=== PATIENT | female | born 2000 | race Hispanic/Latino ===

== ENCOUNTER 2021-08-14 04:57 | Emergency (ER) | payer OTHER ==
[~2021-08-14] VITALS: Ht 154.9 cm; Wt 88.5 kg
[2021-08-14] MEDS ORDERED: AUGMENTIN 875-1 EACH PO (05:12)
[2021-08-14] MEDS ORDERED: IBUPROFEN600 MG PO (05:12)
== END 2021-08-14 05:21 | disposition home or self-care (01) ==
LOC: ER 05:10
DX: H66.91 Otitis media, unspecified, right ear (principal)
CPT/HCPCS: 99283

== ENCOUNTER 2021-08-15 22:33 | Emergency (ER) | payer OTHER ==
[~2021-08-15] VITALS: Ht 154.9 cm; Wt 88.5 kg
[~2021-08-15 22:33] MED LIST: AUGMENTIN 875-1 EACH PO; IBUPROFEN600 MG PO
[2021-08-15] MEDS ORDERED: HYDROCODONE/APAP 5MG-325MG TAB PO ONE (22:45)
[2021-08-15] MEDS ORDERED: KETOROLAC TROMETHAMINE 60 MG/2 ML VIAL IM ONE (22:45)
[2021-08-15] MEDS ORDERED: KETOROLAC TROMETHAMINE 60 MG/2 ML VIAL ONE (22:49)
[2021-08-15] MEDS ORDERED: HYDROCODONE/APAP 5MG-325MG TAB ONE (22:57)
== END 2021-08-15 22:56 | disposition home or self-care (01) ==
LOC: ER 22:40
DX: H60.91 Unspecified otitis externa, right ear (principal)
CPT/HCPCS: 99282; J1885